=== PATIENT | female | born 2000 | race Two or more races ===

== ENCOUNTER 2022-02-04 18:09 | Emergency (ER) | payer BC, MEDICAID, SELFPAY ==
[2022-02-04 18:10] VITALS: BP 129/92; PULSE 96; RESP 16; TEMP 36.4; O2SAT 97; BMI 28.6
--- NOTE | 2022-02-04 19:26 | ED.VIS.CHEST ---
HPI History of Present Illness Chief Complaint: Chest Other Informant: patient Narrative Narrative: 21-year-old female states that earlier today she was laughing and coughing she felt something pop in her lower anterior right ribs. Since that time she has had pain. She notes painful breathing painful range of motion. She denies a deformity. No shortness of breath. [facility] Medical History Tonsil stone Home Medications L norgest/E estradiol-E estrad 0.10 mg-20 mcg (84)/10 mcg(7) tabs,3mos (LoJaimiess) 1 tab PO DAILY 02/04/22 [History Last Taken Unknown] citalopram 20 mg tablet 1 tab PO DAILY 02/04/22 [History Last Taken Unknown] dextroamphetamine-amphetamine ER 25 mg capsule,3 bead,ext release 24hr (Mydayis) 1 ea PO DAILY 02/04/22 [History Last Taken Unknown] Allergy/AdvReac Type Severity Reaction Status Date / Time No Known Allergies Allergy Verified 02/04/22 18:58 Surgical History History of adenoidectomy Social History (Updated 02/04/22 @ 19:[address] Jared Reyes DO) Smoking Status: Never smoker substance use type: does not use ROS ROS ED Constitutional Constitutional ED: Denies chills or weight loss Eyes Eyes: Denies change in vision or diplopia ENT ENT ED: Denies ear pain, rhinorrhea or sore throat Cardiovascular Cardiovascular: Reports chest pain; Denies orthopnea, palpitations or racing heartbeat Respiratory/Chest Respiratory/Chest: Denies cough, dyspnea or orthopnea Gastrointestinal Gastrointestinal: Denies abdominal pain, diarrhea, nausea or vomiting Genitourinary Genitourinary ED: Denies dysuria, hematuria or urinary frequency Musculoskeletal Musculoskeletal: Denies arthralgias or myalgias Integumentary Denies abscess or rash Neurologic Neurologic: Denies headache(s) or weakness Psychiatric Psychiatric: Denies anxiety, depression, suicidal ideation or suicidal thoughts Endocrine Endocrinology: Denies polydipsia, polyphagia or polyuria Allergic/Immunologic Allergic/Immunologic ED: Denies mouth swelling, tongue swelling or urticaria EXAM Physical Exam Const Vital Signs: 02/04/22 18:10 Temperature 97.6 F L Temperature Source Temporal Pulse Rate 96 Respiratory Rate 16 Blood Pressure 129/92 H Blood Pressure Mean 104 Pulse Ox 97 Oxygen Delivery Method Room Air Positive well nourished and well developed General Appearance ED: well developed HEENT Reports normocephalic, head/scalp atraumatic and moist mucous membranes Eyes PERRL and EOMs intact bilaterally Neck no lymphadenopathy, supple and no JVD Chest Wall Chest Narrative: Patient complains of tenderness in the lower anterior right ribs of about rib 8 or 9. She is tender right along the costochondral border. There is no bony deformity. No crepitance felt. Patient winces and cries in pain even if I just touch her skin in the back. Resp normal respiratory effort and clear to auscultation bilaterally Cardio regular rate, regular rhythm and no murmurs GI normal to inspection, nondistended, normoactive bowel sounds and non-tender Palpation: soft Back/Spine no CVA tenderness and normal ROM Extremity normal to inspection General Extremety ED: Negative for edema General Extremity: Negative for edema Neuro oriented x3 and CN's II-XII intact bilaterally Sensorium / Orientation: alert Motor Exam: strength 5/5 throughout Psych mental status grossly normal Mood & Affect: Negative for depressed or tearful Skin no rashes or lesions noted and no wounds MDM MDM MDM Narrative Medical decision making narrative: My impression of the plain films of the PA chest and right ribs is no acute fracture. I think this is most likely a costochondral separation. She received a dose of Toradol would recommend chest wall support as well as anti-inflammatories. Return if worsening or concerns Radiography Diagnostic Testing: Clinical Impression(s) from Imaging Studies Ribs w/Chest X-Ray 02/04/22 19:45 IMPRESSION: Negative chest and right ribs series. Electronically Signed: Mauro Lakhani MD at 20:12 EDT Reading Location ID and State: [facility] / [place] , Service support , Discharge Plan Triage Chief Complaint: Chest Other Other Complaint: Cough ED Provider: Jared Reyes Dx/Rx/DC Orders Clinical Impression: Costochondral separation, Chest pain Instructions: ED Rib Fracture Prescriptions: No Action citalopram 20 mg tablet 1 tab PO DAILY L norgest/e.estradiol-e.estrad [LoJaimiess] 0.10 mg-20 mcg (84)/10 mcg (7) tablets,dose pack,3 month 1 tab PO DAILY Mydayis 25 mg capsule, ER triphasic 24 hr 1 ea PO DAILY Primary Care Provider: [place] Referrals: [place] MD [Primary Care Provider] - 1 Week Activity Restrictions/Additional Instructions: /Ibuprofen 600 mg every 6 hours with food x1 week Disposition Disposition: Home, Self Care
--- NOTE | 2022-02-04 19:45 | RAD_ITS ---
EXAM: XR RIGHT RIBS AND AP CHEST, 3 OR MORE VIEWS CLINICAL INDICATION: painTechnologist Notes pt states she has been coughing and felt a pop on right side. right side pain. TECHNIQUE: Frontal and oblique views of the right ribs and frontal view of the chest. This report was created using [employer] report generation technology. COMPARISON: None. FINDINGS: LUNGS AND PLEURAL SPACES: Unremarkable. No consolidation or edema. No pneumothorax. No effusion. HEART: Unremarkable. Cardiac silhouette not enlarged. MEDIASTINUM: Central airways and mediastinal contour are unremarkable. BONES/JOINTS: Unremarkable. No evidence of displaced rib fractures. RAD/Ribs Uni Min 3V w/PA Chest IMPRESSION: Negative chest and right ribs series. Electronically Signed: Mauro Lakhani MD at 20:12 EDT Reading Location ID and State: [facility] / [place] , Service support ,
[2022-02-04] MEDS: Ketorolac 60 MG/2 ML Vial IM (19:46)
[2022-02-04 21:03] VITALS: BP 115/81; PULSE 65; RESP 18; O2SAT 98
== END 2022-02-04 21:05 | disposition home or self-care (01) ==
LOC: ED 19:47
PROVIDERS: Emergency Provider Emergency Medicine; PCP Family Medicine; Visit Provider Emergency Medicine
DX: S23.29XA Dislocation of other parts of thorax, initial encounter (principal); X58.XXXA Exposure to other specified factors, initial encounter; Z79.899 Other long term (current) drug therapy
CPT/HCPCS: 71101; 96372; 99282